=== PATIENT | female | born 1930 | race African-American/Black ===

== ENCOUNTER 2017-07-02 11:00 | Outpatient (RCR) | payer OTHER, MEDICAID ==
[~2017-07-02 11:00] MED LIST: ADALAT CC90 MG ORAL; ATORVASTATIN CA40 MG ORAL; BENADRYL ALLERG25 M1 PO; BENADRYL25 M2 PO; COD LIVER OIL1 EAC1 PO; DICLOFENAC SODI75 MG ORAL; FLUTICASONE PRO16 G1 NASAL; HYDROCHLOROTHIA25 MG ORAL; LORAZEPAM1 MG ORAL; OMEPRAZOLE40 M1 ORAL; PEPCID20 MG ORAL; POTASSIUM CHLO20 ME3 PO; PREDNISONE50 MG ORAL; RANITIDINE50 MG/2 ML IV; SIMVASTATIN40 MG ORAL; TEMAZEPAM15 MG ORAL; VITAMIN D3400 UNI2 PO; ZANTAC150 MG ORAL; ZESTORETIC 20-1 EAC1 PO; ZYRTEC10 MG ORAL
== END 2017-07-14 | disposition home or self-care (01) ==
LOC: PTY 11:00
PROVIDERS: ATTEND Internal Medicine
DX: R29.6 Repeated falls (principal); R26.9 Unspecified abnormalities of gait and mobility

== ENCOUNTER 2017-07-20 09:35 | Outpatient (RCR) | payer OTHER, MEDICAID | END 2017-08-11 | disposition home or self-care (01) | LOC: PTY 09:35 | PROVIDERS: ATTEND Internal Medicine | DX: R29.6 Repeated falls (principal); R26.9 Unspecified abnormalities of gait and mobility ==

== ENCOUNTER 2017-08-12 09:00 | Outpatient (RCR) | payer OTHER, MEDICAID | END 2017-09-11 | disposition home or self-care (01) | LOC: PTY 09:00 | PROVIDERS: ATTEND Internal Medicine | DX: R29.6 Repeated falls (principal) ==

== ENCOUNTER 2017-09-14 09:43 | Outpatient (RCR) | payer OTHER, MEDICAID | END 2017-10-11 | disposition home or self-care (01) | LOC: PTY 09:43 | PROVIDERS: ATTEND Internal Medicine | DX: R26.9 Unspecified abnormalities of gait and mobility (principal) ==